=== PATIENT | male | born 1980 | race Caucasian/White ===

== ENCOUNTER 2020-07-21 07:24 | Outpatient (CLI) | payer BC ==
[2020-07-21 16:46] LABS: Bilirubin Neg (Negative); Blood, Urine Negative (Negative); Clarity Clear (Clear); Glucose, Urine (Dipstick) Normal (Negative); Ketone, Urine Negative (Negative); Leukocyte Negative (Negative); Nitrite Negative (Negative); Protein, Urine (Dipstick) Negative (Neg-Trace)
[2020-07-21 16:48] LABS: Hemoglobin 15.5 g/dL (14.0-18.0); Mean Corpuscular HGB CONC 34.4 G/DL (32.0-36.0); Mean Corpuscular Hemoglobin 29.8 PG (27.0-33.0); Mean Corpuscular Volume 86.4 fl (80.0-100.0); Platelet Count 262 10x3/uL (130-400); Red Blood Cell (RBC) Count 5.21 10x6/uL (4.40-5.80)
[2020-07-21 16:59] LABS: Bacteria/HPF Rare-Few HPF (None Seen); RBC/HPF 0-3 HPF (0-3); Squamous Epithelial 0-3 HPF (0-3); WBC/HPF 0-3 HPF (0-3)
[2020-07-21 17:04] LABS: INR-International Normal Ratio 1.1; PTT 30.3 sec (22.0-33.0); Prothrombin Time 11.6 sec (9.5-12.1)
[2020-07-21 17:17] LABS: Anion Gap 16 mmol/L (10-20); BUN (Urea Nitrogen) 11 mg/dL (8.9-20.6); Calc. Creatinine Clearance 0 mL/min (70-130); Calcium 9.3 mg/dL (7.8-10.44); Carbon Dioxide 24 mmol/L (22-29); Chloride 104 mmol/L (98-107); Estimated GFR-MDRD Greater than 90; Glucose 84 mg/dL (70-105); Potassium 4.4 mmol/L (3.5-5.1); Sodium 140 mmol/L (136-145)
[2020-07-22 13:38] LABS: SARS-CoV-2 MS2 Positive; SARS-CoV-2 N Gene Negative; SARS-CoV-2 S Gene Negative; SARS-CoV-2 by NAA Not Detected (NotDetected); SARS-CoV-2 orf1ab Negative
--- NOTE | 2020-07-25 08:36 | EKG ---
Test Reason : PREOP Blood Pressure : / mmHG Vent. Rate : 070 BPM Atrial Rate : 070 BPM P-R Int : 196 ms QRS Dur : 090 ms QT Int : 354 ms P-R-T Axes : 071 028 051 degrees QTc Int : 382 ms Normal sinus rhythm Cannot rule out Anterior infarct , age undetermined Abnormal ECG No previous ECGs available Confirmed by REBEKAH MOSS MD ([id number]) on 07/25/2020 8:36:03 AM Referred By: GILLIAN, Confirmed By:REBEKAH MOSS MD
== END 2020-07-21 07:25 | disposition home or self-care (01) ==
LOC: LABBT 07:24
PROVIDERS: ATTEND Urology
DX: Z01.818 Encounter for other preprocedural examination (principal); Z20.828 Contact with and (suspected) exposure to other viral communicable diseases; N32.0 Bladder-neck obstruction; R39.198 Other difficulties with micturition; R35.0 Frequency of micturition
CPT/HCPCS: 80048; 81001; 85027; 85610; 85730; 87086; 87635; 93005; 93010; U0003

== ENCOUNTER 2020-07-24 10:24 | Observation (INO) | payer BC ==
[2020-07-23 15:09] VITALS: BMI 27.3
[~2020-07-24 10:24] MED LIST: Dexamethasone 20 MG/5 ML VIAL ONE; Ketorolac Tromethamine 30 MG/ML VIAL ONE; Lidocaine 1% PF 5 ML VIAL ONE; Metoclopramide HCl 10 MG/2 ML VIAL ONE; Ondansetron PF 4 MG/2 ML Vial ONE; PROPOFOL 200 MG/20 ML VIAL ONE
[2020-07-24] MEDS ORDERED: Levofloxacin 500 mg/D5W 100 ml Premix Bag ONE (11:02)
[2020-07-24] MEDS ORDERED: B & O ONE (13:00)
[2020-07-24] MEDS ORDERED: Fentanyl 100 MCG/2 ML VIAL ONE ×2 (13:07→15:32)
[2020-07-24] MEDS ORDERED: Midazolam HCl 2 mg/2 ml Vial ONE (13:07)
[2020-07-24] MEDS ORDERED: Famotidine/PF 20 mg/2ml Vial ONE (13:07)
[2020-07-24] MEDS ORDERED: Meperidine HCl/PF 25 MG/ML VIAL SLOW IVP PRN (13:53)
[2020-07-24] MEDS ORDERED: Ondansetron HCl/PF 4 MG/2 ML Vial IVP PRN (13:53)
[2020-07-24] MEDS ORDERED: Promethazine HCl 25 MG/ML VIAL IM PRN (13:53)
[2020-07-24] MEDS ORDERED: PACU-Morphine 4MG/ML VIAL SLOW IVP PRN (13:53)
[2020-07-24] MEDS ORDERED: Promethazine HCl 25 MG/ML VIAL SLOW IVP PRN (13:53)
[2020-07-24] MEDS ORDERED: hydrALAZINE 20 MG/ML VIAL SLOW IVP PRN (13:56)
[2020-07-24] MEDS ORDERED: Hyoscyamine Sulfate SL 0.125 mg Tablet SL PRN (13:56)
[2020-07-24] MEDS ORDERED: Bisacodyl 10 MG SUPP PR PRN (13:56)
[2020-07-24] MEDS ORDERED: Phenazopyridine HCl 97.5 MG TABLET PO PRN (13:56)
[2020-07-24] MEDS ORDERED: diphenhydrAMINE 25 MG CAP PO PRN (13:56)
[2020-07-24] MEDS ORDERED: Ondansetron PF 4 MG/2 ML Vial IVP PRN (13:56)
[2020-07-24] MEDS ORDERED: Morphine 2 MG/ML VIAL SLOW IVP PRN (13:56)
[2020-07-24] MEDS ORDERED: Acetaminophen 500 MG TAB PO PRN (13:56)
[2020-07-24] MEDS ORDERED: HYDROcodone/Acetaminophen 5/325 mg Tablet ONE (18:12)
[2020-07-24] MEDS: Famotidine/PF 20 mg/2ml Vial SLOW IVP SCH (20:57)
[2020-07-24] MEDS ORDERED: Lisinopril 2.5 MG TAB PO SCH (21:00)
[2020-07-24] MEDS: Docusate 100 MG CAP PO SCH (21:00)
--- NOTE | 2020-07-25 00:39 | OP ---
DATE OF PROCEDURE: 07/24/2020 SERVICES: Urology. PREOPERATIVE DIAGNOSIS: Bladder outlet obstruction. POSTOPERATIVE DIAGNOSIS: Bladder outlet obstruction. PROCEDURE PERFORMED: Transurethral incision of the prostate. INDICATIONS FOR PROCEDURE: Mr. Celaya is a 40-year-old white male, who has a long history of urinary complaints including slow stream with urgency and frequency. He improved quite significantly on Flomax. He delayed his surgery secondary to wanting to have more children, but ultimately he elected to proceed forward with transurethral incision of the prostate. Risks and benefits have been discussed, including a risk of permanent retrograde ejaculation. He understands these risks and wishes to proceed forward. DESCRIPTION OF PROCEDURE: After identification of armband and verification of consent, the patient was brought back to the operating room, where he underwent general anesthesia with LMA. He was placed in dorsal lithotomy position and prepped and draped in usual sterile fashion. After appropriate time-out, a lubricated 26-Bulgarian resectoscope sheath with visual obturator passed through the urethra into the prostate and into the bladder. The visual obturator was then switched out for the bipolar button. Relaxing incisions were then made on the bladder neck near 5 and 7 o'clock and the intervening tissue vaporized out. The incisions were carried out from the bladder neck all the way up to just proximal to the verumontanum. The bladder neck dropped wide open and resulted in extremely wide prostatic fossa. The lateral tissue and anterior tissue were left intact. An apical tissue was left intact as well to try and preserve ejaculatory function as much as possible. Upon completion, meticulous hemostasis was performed. Both ureters were in orthotopic location unharmed. The bladder appeared otherwise unremarkable, other than some mild and inflammatory changes. The resectoscope was then removed and a 20-Bulgarian 3-way Reyes catheter was placed into the bladder with ease. CBI was initiated and B and O suppository placed in the patient's rectum. He was then taken out of positioning, awakened, taken to PACU for recovery in stable condition. COMPLICATIONS: None. ESTIMATED BLOOD LOSS: Minimal. RETAINED TUBES AND DRAINS: 20-Bulgarian Reyes catheter. SPECIMENS: None. DISPOSITION: The patient will be kept in the hospital overnight. We will plan a voiding trial in the morning and discharge home thereafter. Job ID: [id number]
[2020-07-25] MEDS: Oxybutynin 5 MG TAB PO PRN ×2 (04:16→10:57)
[2020-07-25] MEDS ORDERED: FLU VACC QS2020-21(6MOS UP)/PF 60 MCG/0.5 ML SYRINGE IM ONE (09:00)
[2020-07-25] MEDS: Famotidine/PF 20 mg/2ml Vial SLOW IVP SCH (09:25)
[2020-07-25] MEDS: Docusate 100 MG CAP PO SCH (09:25)
--- NOTE | 2020-07-25 09:39 | PRG ---
DATE OF SERVICE: 07/25/2020 SUBJECTIVE: The patient states he is feeling good. Denies any significant bladder spasms or pain. Denies any chest pain or short of breath. OBJECTIVE: VITAL SIGNS: Temperature 97.7, pulse 62, respirations 18, blood pressure 115/70, saturation 100% on room air. GENERAL: No apparent distress, communicative and alert. CARDIOVASCULAR: Regular rate and rhythm. ABDOMEN: Soft, nontender, and nondistended. : Reyes catheter in place with extremely mild blood-tinged urine off CBI. EXTREMITIES: No edema. ASSESSMENT AND PLAN: 40-year-old white male with bladder outlet obstruction status post TUIP, postop day one, doing very well. We will plan a void trial. Assuming the patient voids adequately, we will plan discharge with followup in approximately 1 week. I have gone over all the patient's discharge instructions. Job ID: [id number]
--- NOTE | 2020-07-25 09:49 | DIS ---
DATE OF ADMISSION: 07/24/2020 DATE OF DISCHARGE: 07/25/2020 DISCHARGING PHYSICIAN: Dr. Spaulding. ADMITTING DIAGNOSIS: Bladder outlet obstruction. DISCHARGE DIAGNOSIS: Bladder outlet obstruction. PROCEDURE PERFORMED: While inpatient is transurethral incision of the prostate. BRIEF HISTORY: Mr. Celaya is a 40-year-old white male with bladder outlet obstruction, diagnosed by cystoscopy and urinary complaints. He had done quite well with Flomax and did not want to be on the medication long-term secondary to the side effects. He ultimately has elected to undergo transurethral incision of the prostate. Risks and benefits have been discussed including risk of retrograde ejaculation, which he understands and he wished to go forward. The full H and P can be found in the scanned portion of the [employer] System. HOSPITAL COURSE: After his surgery (please see operative note for details), the patient was kept in the hospital overnight on CBI. There was a very small amount of blood in his urine. CBI was stopped in the morning. The patient has catheter removed and was able to void with only a mild amount of hematuria. He was deemed stable for discharge and discharged home. DISPOSITION: Discharge to home. DISCHARGE CONDITION: Good. DISCHARGE MEDICATIONS: The patient will resume all of his home medications except tamsulosin, which will be discontinued permanently. He will also be given medications of tramadol, Pyridium, Colace, and oxybutynin for symptomatic control. I have gone over all of the patient's discharge instructions. We will see him back in 1 week for postop check. Job ID: [id number]
[2020-07-25 11:47] VITALS: BP 109/72; TEMP 97.9
== END 2020-07-25 14:41 | disposition home or self-care (01) ==
LOC: SDC 10:24 → SURG A 13:58
PROVIDERS: ADMIT Urology; ATTEND Urology
PROC: 0TND7ZZ Release Urethra, Via Natural or Artificial Opening (ICD-10-PCS; principal; 2020-07-24)
DX: N32.0 Bladder-neck obstruction (principal); R39.198 Other difficulties with micturition; R35.0 Frequency of micturition; F41.9 Anxiety disorder, unspecified; Z79.899 Other long term (current) drug therapy; Z88.0 Allergy status to penicillin; Z91.038 Other insect allergy status
CPT/HCPCS: 96374; 96375; 96376; G0378; J1100; J1885; J1956; J2250; J2270; J2405; J2704; J2765; J3010; S0028

== ENCOUNTER 2022-05-22 15:33 | Emergency (ER) | payer BC, SELFPAY | END 2022-05-22 16:44 | disposition home or self-care (01) | LOC: ERS 15:33 | DX: S50.12XA Contusion of left forearm, initial encounter (principal); W22.8XXA Striking against or struck by other objects, initial encounter ==